=== PATIENT | female | born 1955 | race Caucasian/White ===

== ENCOUNTER 2020-04-03 13:07 | Outpatient (REF) | payer OTHER, SELFPAY | END 2020-04-03 13:08 | disposition home or self-care (01) | LOC: HO.HAP 13:07 | DX: Z46.1 Encounter for fitting and adjustment of hearing aid (principal) | CPT/HCPCS: 92700 ==

== ENCOUNTER 2020-04-07 08:31 | Outpatient (REF) | payer OTHER, SELFPAY ==
--- NOTE | 2020-04-07 10:26 | MHC.AU.P13 ---
Hearing Instrument Follow-Up- Binaural Date of Visit: 04/07/20 Right Ear: [employer]: Oticon Model: OPN S 2 mini RITE Serial Number: [id number] canal earmold #[id number] Warranty: Hearing Aid 04/02/2023 Canal earmold 06/17/2020 Battery Size: 312 Color: Chroma Beige Left Ear: [employer]: Oticon Model: OPN S 2 mini RITE T Serial Number: [id number] canal earmold #[id number] Warranty: Hearing Aid 04/02/2023 Integrated Canal earmold 04/02/2023 Battery Size: 312 Color: Chroma Beige Follow-Up Summary: Patient has been having problems with the fit of the left earmold. Took new impressions today and sending the earmolds back to be remade. Switching to size 2 wires too. Will call to schedule a 60 min hearing aid fitting upon receipt. Recommendations: Recommendations (Other): Will call to schedule an appointment once remade molds are received. Diagnosis Code(s): Primary Diagnosis: H90.3 Bilateral Sensorineural Hearing Loss Services Performed: Assorted Hearing Aid Service: No Charge Visit Signature: Provider: Paul Lyon, CCC-A
== END 2020-04-07 08:32 | disposition home or self-care (01) ==
LOC: HO.HAP 08:31
DX: Z46.1 Encounter for fitting and adjustment of hearing aid (principal)
CPT/HCPCS: 92700

== ENCOUNTER 2020-04-18 11:34 | Outpatient (REF) | payer OTHER, SELFPAY | END 2020-04-18 11:35 | disposition home or self-care (01) | LOC: HO.HAP 11:34 | PROVIDERS: Visit Provider Internal Medicine | DX: Z13.89 Encounter for screening for other disorder (principal) | CPT/HCPCS: 92700 ==

== ENCOUNTER 2020-05-02 11:34 | Outpatient (REF) | payer OTHER, SELFPAY | END 2020-05-02 11:35 | disposition home or self-care (01) | LOC: HO.HAP 11:34 | PROVIDERS: PCP Internal Medicine; Referring Provider Internal Medicine; Visit Provider Internal Medicine | DX: Z46.1 Encounter for fitting and adjustment of hearing aid (principal) | CPT/HCPCS: V5011; V5020; V5160; V5261; V5264; V5266 ==

== ENCOUNTER 2020-06-29 11:26 | Outpatient (REF) | payer OTHER, SELFPAY | END 2020-06-29 11:27 | disposition home or self-care (01) | LOC: HO.HAP 11:26 | PROVIDERS: Visit Provider Internal Medicine | DX: Z13.89 Encounter for screening for other disorder (principal) ==

== ENCOUNTER 2021-01-16 11:33 | Outpatient (REF) | payer SELFPAY | END 2021-01-16 11:34 | disposition home or self-care (01) | LOC: HO.HAP 11:33 | PROVIDERS: Visit Provider Internal Medicine | DX: Z13.89 Encounter for screening for other disorder (principal) ==

== ENCOUNTER 2022-11-14 11:31 | Outpatient (REF) | payer MEDICARE, SELFPAY | END 2022-11-14 11:32 | disposition home or self-care (01) | LOC: HO.SH 11:31 | PROVIDERS: Visit Provider Internal Medicine | DX: Z01.118 Encounter for examination of ears and hearing with other abnormal findings (principal); H90.3 Sensorineural hearing loss, bilateral | CPT/HCPCS: 92557; 92567 ==

== ENCOUNTER 2022-12-12 11:05 | Outpatient (REF) | payer SELFPAY | END 2022-12-12 11:06 | disposition home or self-care (01) | LOC: HO.HAP 11:05 | PROVIDERS: Visit Provider Internal Medicine | DX: Z13.89 Encounter for screening for other disorder (principal) ==

== ENCOUNTER 2023-02-18 12:47 | Outpatient (REF) | payer SELFPAY ==
--- NOTE | 2023-02-19 10:03 | MHC.AU.HA3 ---
Hearing Instrument Follow-Up- Binaural Date of Visit: 02/18/23 Right Ear: Make, Model, Color, Serial Number: Oticon OPN S2 miniRITE-T SN: [id number] Color: Chroma Beige Assistant To The Vice President Repair Warranty: Hearing Aid 04/02/2023; Earmold 06/17/2020 Assistant To The Vice President Loss and Damage Warranty: 04/02/2023 [facility] Service Plan: 04/03/2023 Battery Size: 312 Garment Tag Stringer/Slim Tube: 2/85 Earmold/Dome/CShell/SlimTip:6 mm single cheung dome with retention tail Type of Wax Guard: miniFit Dispensed By: [facility] Date of Fittin04/03/2020 Left Ear: Make, Model, Color, Serial Number: Oticon OPN S2 miniRITE-T SN: [id number] Color: Chroma Beige Assistant To The Vice President Repair Warranty: Hearing Aid 04/02/2023; Earmold 04/02/2023 Assistant To The Vice President Loss and Damage Warranty: 04/02/2023 [facility] Service Plan: 04/02/2023 Battery Size: 312 Garment Tag Stringer/Slim Tube: Size 2 105 gain Earmold/Dome/CShell/SlimTip: Oticon canal ear mold Type of Wax Guard: mini RITE Pro Wax Dispensed By: [facility] Date of Fittin04/03/2020 Follow-Up Summary: Matt reported she is still having issues with the right hearing aid. Left hearing aid/ear mold - no issues. She has a history of retention and comfort issues with the right acoustic coupling. She initially started with a slim tip ear mold that was consistently uncomfortable despite a remake and she never acclimated to the physical fit. She has tried both 6mm and 8mm cheung domes with concerns regarding retention. Previously noted 6mm domes felt too small and 8mm domes too difficult to insert with some discomfort. She arrived today with a 6mm cheung dome on her right hearing aid; however, it was not fully inserted. Matt reported that the dome continuously works its way out of her ear throughout the day. Attempted to use ear mold again; however, Matt reported she does not like the feeling of the mold in her right ear. Decided to stay with 6mm dome and add retention tail. Practiced insertion multiple times in office. Matt able to successfully insert the right hearing aid with the retention tail with practice. Recommendations: Hearing instrument follow-up or maintenance as needed. Please contact our clinic with any questions or concerns. Patient will call if problems persist. Diagnosis Code(s): Primary Diagnosis: H90.A32 Mixed HL, Unilateral, Left Ear, W/Restricted Contralateral Secondary Diagnosis: H90.A21 SNHL, Unilateral Right Ear, W/Restricted Contralateral Hearing Signature: Provider: Mino Cobian, [facility]
== END 2023-02-18 12:48 | disposition home or self-care (01) ==
LOC: HO.HAP 12:47
PROVIDERS: Visit Provider Internal Medicine
DX: Z13.89 Encounter for screening for other disorder (principal)

== ENCOUNTER 2023-08-14 11:18 | Outpatient (REF) | payer SELFPAY | END 2023-08-14 11:19 | disposition home or self-care (01) | LOC: HO.HAP 11:18 | PROVIDERS: Visit Provider Internal Medicine | DX: Z13.89 Encounter for screening for other disorder (principal) ==

== ENCOUNTER 2023-10-09 11:27 | Outpatient (REF) | payer SELFPAY | END 2023-10-09 11:28 | disposition home or self-care (01) | LOC: HO.HAP 11:27 | PROVIDERS: Visit Provider Internal Medicine | DX: Z13.89 Encounter for screening for other disorder (principal) ==

== ENCOUNTER 2023-10-16 13:57 | Outpatient (REF) | payer SELFPAY | END 2023-10-16 13:58 | disposition home or self-care (01) | LOC: HO.HAP 13:57 | PROVIDERS: Visit Provider Internal Medicine | DX: Z13.89 Encounter for screening for other disorder (principal) ==

== ENCOUNTER 2024-01-02 11:09 | Outpatient (REF) | payer SELFPAY | END 2024-01-02 11:10 | disposition home or self-care (01) | LOC: HO.HAP 11:09 | PROVIDERS: Visit Provider Internal Medicine | DX: Z13.89 Encounter for screening for other disorder (principal) ==

== ENCOUNTER 2024-01-22 11:23 | Outpatient (REF) | payer SELFPAY ==
--- NOTE | 2024-01-22 14:11 | MHC.AU.HA3 ---
Hearing Instrument Follow-Up- Binaural Date of Visit: 01/22/24 Right Ear: Make, Model, Color, Serial Number: Oticon OPN S2 miniRITE-T SN: [id number] Color: Chroma Beige Banquet Houseperson Repair Warranty: 04/02/2023 Banquet Houseperson Loss and Damage Warranty: 04/02/2023 [facility] Service Plan: 04/03/2023 Battery Size: 312 Orchestra Conductor/Slim Tube: 2/85 Earmold/Dome/CShell/SlimTip:Oticon half skeleton micromold Type of Wax Guard: ProWax Dispensed By: [facility] [place] Date of Fittin04/03/2020 Left Ear: Make, Model, Color, Serial Number: Oticon OPN S2 miniRITE-T SN: [id number] Color: Chroma Beige Banquet Houseperson Repair Warranty: 04/02/2023 Banquet Houseperson Loss and Damage Warranty: 04/02/2023 [facility] [place] Service Plan: 04/02/2023 Battery Size: 312 Orchestra Conductor/Slim Tube: Size 2 105 gain Earmold/Dome/CShell/SlimTip: Oticon canal ear mold Type of Wax Guard: ProWax Dispensed By: [facility] [place] Date of Fittin04/03/2020 Follow-Up Summary: Fit new right ear mold, acrylic half skeleton, to help with retention. Comfortable and no feedback. Matt was able to insert the ear mold easily multiple times. Also answered questions about and explained bluetooth connection. Matt started to download the Oticon Entry Level Project Engineer richi in office; however, it was taking too long. She will look through richi at home and call with questions and/or if concerns with fit of earmold arise. Recommendations: Hearing instrument follow-up or maintenance as needed. Please contact our clinic with any questions or concerns. Diagnosis Code(s): Primary Diagnosis: H90.A32 Mixed HL, Unilateral, Left Ear, W/Restricted Contralateral Secondary Diagnosis: H90.A21 SNHL, Unilateral Right Ear, W/Restricted Contralateral Hearing Signature: Provider: Mino Cobian, [facility]
== END 2024-01-22 11:24 | disposition home or self-care (01) ==
LOC: HO.HAP 11:23
PROVIDERS: Visit Provider Internal Medicine
DX: Z46.1 Encounter for fitting and adjustment of hearing aid (principal); H90.A32 Mixed conductive and sensorineural hearing loss, unilateral, left ear with restricted hearing on the contralateral side; H90.A21 Sensorineural hearing loss, unilateral, right ear, with restricted hearing on the contralateral side
CPT/HCPCS: V5264

== ENCOUNTER 2024-08-25 10:40 | Outpatient (REF) | payer MEDICARE, SELFPAY ==
--- OUTSIDE RECORDS SUMMARY | 2024-08-25 13:16 | XMS_ITS | Clinical Summary ---
Author Organization [facility] Address [address] [place] [address] Phone Care Team Providers Care Coffee Brewer Name Role Phone Aida Brock MD Primary Care Provider [phone] Allergies Active Allergy Reactions Criticality Noted Date Comments Aspirin Hives 05/07/2024 Nsaids (Non-Steroidal Anti-I nflammatory Drug) 05/07/2024 Medications zoledronic acid (RECLAST) 5 mg/100 mL piggybackIndicat ions:Osteoporosi s, unspecified osteoporosis type, unspecified pathological fracture presence Infuse 100 mL (5 mg total) into a venous catheter 1 (one) time for 1 dose. 100 mL 05/04/20 24 Active methotrexate, PF, (RediTrex, PF,) 20 mg/0.8 mL syringe Inject 20 mg under the skin. Active cholecalciferol (VITAMIN D-3) 50 mcg (2,000 unit) tablet Take 1 tablet (2,000 Units total) by mouth. Active folic acid (FOLVITE) 1 mg tablet Take 1 tablet (1,000 mcg total) by mouth 1 (one) time each day. Active cycloSPORINE (RESTASIS) 0.05 % ophthalmic emulsion Administer 1 drop into affected eye(s) every 12 hours. 03/20/20 24 Active valACYclovir (VALTREX) 500 mg tablet TAKE 1 TABLET BY MOUTH EVERY DAY 90 tablet 08/05/19 25 Active valACYclovir (VALTREX) 500 mg tablet TAKE 1 TABLET BY MOUTH EVERY DAY 30 tablet 07/06/19 25 025 Discontinued Active Problems Problem Noted Date Diagnosed Date Aspirin-exacerbated respiratory disease (AERD) 0 08/09/2024 Osteoporosis 05/07/2024 Uveitis 03/04/2023 Overview (08/09/2024): Dr Hoover, [facility] (mtx inj) Macular edema, cystoid, right 08/30/2020 Overview (08/09/2024): 09/17 Cough 08/01/2020 Mild intermittent asthma without complication Retinal detachment 01/06/2020 Overview (08/09/2024): Summer 2021: Left. Pending possible surgical repair 2019: Right: Tractional retinal detachment without clear break; cystoid macular edema right eye 09/17. Consult note 12/29/2019, Dr. Parry. Posterior vitreous detachment of right eye, slight vitreous hemorrhage of right eye. No evidence of retinal tears or detachment. She eventually had a surgical procedure with no improvement in vision. May,: Left: Questionable uveitis, treated with steroids for a while. Surgery somewhat helpful. Now legally blind. Cervical spondylosis 06/03/2019 Dry eye 10/01/2016 Anxiety 12/23/2015 Allergic rhinitis 12/22/2015 Eczema 12/22/2015 Hearing loss of both ears 12/22/2015 Herpes simplex 12/22/2015 Overview (08/09/2024): Left buttock Vitamin D deficiency 12/22/2015 Osteoporosis 12/04/2015 Overview (08/09/2024): 10/15 T score spine -2.7 hip -2.7 FRAX score Nasal polyp 11/03/2006 Encounters Date Type Department Care Team Description 07/23/2024 Telephone Internal Medicine - [facility] [address] [place] [phone] Aida Brock MD fax from Last 3 Months Immunizations Name Administration Dates Next Due Pneumococcal conjugate 20 va lent (Prevnar 20, PCV 20) 2mo and older 03/04/2023 Tdap Tetanus diptheria acell ular pertussis (Boostrix; Adacel) 7yo and older 05/04/2020,06/09/2012,11/02/2008 Surgical History Surgery Date Site/Laterality Comments CATARACT EXTRACTION 2010 Bilateral PROCEDURE: HISTORICAL CATARACT REMOVAL OTHER SURGICAL HISTORY 1978 PROCEDURE: HISTORICAL UNSPECIFIED SURGERY; COMMENT: Bilateral ethmoidectomy, OTHER SURGICAL HISTORY 1977 PROCEDURE: HISTORICAL UNSPECIFIED SURGERY; COMMENT: Open reduction of right thumb fracture OTHER SURGICAL HISTORY 06/09/15 PROCEDURE: MAMMOGRAM COLONOSCOPY 11/16/12 PROCEDURE: HISTORICAL COLONOSCOPY; COMMENT: Normal COLONOSCOPY 10/05/1999 PROCEDURE: HISTORICAL COLONOSCOPY; COMMENT: 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 Medical History Medical History Date Comments Other polyp of sinus 11/03/2006 DX:Other po lyp of sinus Osteoporosis 12/04/2015 DX:Osteoporosis Hearing loss of both ears 12/22/2015 DX:Hea ring loss of both ears Allergic rhinitis 12/22/2015 DX:Allergic rh initis Eczema 12/22/2015 DX:Eczema Vitamin D deficiency 12/22/2015 DX:Vitamin D deficiency History of superficial phlebitis 12/23/2015 DX:History of superficial phlebitis Anxiety 12/23/2015 DX:Anxiety Cervical spondylosis 06/03/2019 DX:Cervical spondylosis Vitreous detachment of right eye 01/06/2020 DX:Vitreous detachment of right eye; COMMENT: Consult note 12/29/2019, Dr. Parry. Posterior vitreous detachment of right eye, slight vitreous hemorrhage of right eye. No evidence of retinal tears or detachment. Conservative care with follow-up as needed. Macular edema, cystoid, right 08/30/2020 DX :Macular edema, cystoid, right; COMMENT: 09/17 Aspirin-exacerbated respirat ory disease (AERD) 01/17/2022 DX:Aspirin-exacerbated respi ratory disease (AERD); COMMENT: Per ENT Uveitis 03/04/2023 DX:Uveitis; COMM ENT: Dr Hoover, [facility] center (mtx inj) Family History Medical History Relation Name Comments Other: Heart disease Brother s/p car diac bypass Prostate cancer Father colon cancer , htn Dementia Mother thyroid, osteop orosis Other: Tourettes Son Relation Name Status Comments Brother Father (Age 76) Mother Alive 90 Sister Alive Son Social History Tobacco Use Types Packs/Day Years Used Date Smoking Tobacco: Never Smokeless Tobacco: Never Alcohol Use Standard Drinks/Week Comments No 0 (1 standard drink = 0.6 oz pur e alcohol) Comments Unknown Sex and Gender Information Value Date Recorded Sex Assigned at Not on file Legal Sex Female 5:58 AM EST Gender Identity Not on file Sexual Orientation Not on file Obstetrics History Last Filed Vital Signs Vital Sign Reading Time Taken Comments Blood Pressure 157/62 05/07/2024 1:11 PM EST Pulse 90 05/07/2024 1:11 PM EST Temperature 37.2 ??C (99 ??F) 05/07/2024 1:11 PM EST Respiratory Rate - - Oxygen Saturation 100% 05/07/2024 1:11 PM EST Inhaled Oxygen Concentration - - Weight 21.4 kg (47 lb 3.2 oz) 05/07/2024 1:11 PM EST Height 152.4 cm (5') 03/25/2024 11:49 AM EDT Body Mass Index 9.22 03/25/2024 11:49 AM EDT Plan of Treatment Upcoming Encounters Date Type Department Care Team (Late st Contact Info) Description 02/04/2025 11:00 AM EDT Office Visit Endocrinology - [place] [address] [place] [address] Rashid Mills MD [address] [place] [address] Health Maintenance Due Date Last Done Comments Zoster Vaccines (1 of 2) 2005 RSV Immunization Patients 60+ Years Old (1 - Risk 60-74 years 1-dose series) 2015 Depression Screening 06/08/2022 Hepatitis C Screening 06/08/2022 Medicare Annual Wellness Visit 06/08/2022 Social Influencers of Health Screening 06/08/2022 COVID-19 Vaccine ( season) 2024 05/20/2021, 10/21/2020, 09/23/2020 Influenza Vaccine (#1) 2024 Colorectal Cancer Screening: Stool Based Tests (FOBT/FIT) 04/02/2024 04/02/2023 Falls Risk Assessment 05/07/2025 05/07/2024 Breast Cancer Screening 12/29/2025 12/30/19 24, 12/18/2022, 11/15/2021, Additional history exists Cholesterol Screening (Lipid Panel) 03/30/2029 03/30/2024, 03/30/2024 DTaP,Tdap,and Td Vaccines (4 - Td or Tdap) 05/04/2030 05/04/2020, 06/09/2012, 11/02/2008 Osteoporosis Screening (Bone Density Screening) 09/10/2033 09/11/2023, 01/25/2021 Pneumococcal Vaccine: 50+ Years Completed 03/04/2023 HIB Vaccines Aged Out No longer eligi ble based on patient's age to complete this topic HPV Vaccines Aged Out No longer eligi ble based on patient's age to complete this topic Hepatitis A Vaccines Aged Out No long er eligible based on patient's age to complete this topic Hepatitis B Vaccines Aged Out No long er eligible based on patient's age to complete this topic IPV Vaccines Aged Out No longer eligi ble based on patient's age to complete this topic MMR Vaccines Aged Out No longer eligi ble based on patient's age to complete this topic Meningococcal ACWY Vaccine Aged Out N o longer eligible based on patient's age to complete this topic Meningococcal B Vacine Aged Out No lo nger eligible based on patient's age to complete this topic RSV Immunization Patients Under 20 months Aged Out No longer eligible based on patient's age to complete this topic Varicella Vaccines Aged Out No longer eligible based on patient's age to complete this topic Procedures Procedure Name Priority Date/Time Associated Diagnosis Comments LIPID PANEL Routine 03/30/2024 ASMITA SCREENING DIGITAL Routine 12/30/2023 3:24 PM EDT Encounter for screening mammogram for malignant neoplasm of breast DXA BONE DENSITY STUDY 1+ SITS AXIAL SKEL Routine 09/11/2023 1:27 PM EDT Age-related osteoporosis without current pathological fracture HM STOOL BASED TEST Routine 04/02/2023 from Last 3 Months or Most Recently Relevant to Health Maintenance Results * Lipid panel (03/30/2024) LDL/HDL Ratio 3 0 - 4 Triglycerides 79 0 - 150 mg/dL Cholesterol 189 0 - 200 mg/dL HDL 77 >=40 mg/dL LDL Cholesterol 97 0 - 100 mg/dL Blood Venous blood specimen / Unknown us Historical Provider LAB BLOOD ORDERABLES Katelyn bonilla Result * ASMITA SCREENING DIGITAL (12/30/2023 3:24 PM EDT) Anatomical Region Laterality Modality Mammography 12/30/2023 11:0 2 AM EDT Narrative 12/30/2023 3:24 PM EDT [facility] Diagnostic Imaging Department [address] [place] [address] Patient: ??KOREY COE ?/Age/Sex: 1955 - 68 - F Unit#: ??[id number] ? Location/Status: ??SPDIMAM/REG CLI ? Mnemonic/Ordering Site: ??DIGSC/SPMAM Ordering Physician: ??AIDA BROCK MD [facility] Screening Digital - 12/30/23 - [id number] Report Status:Signed EXAM: [facility] Screening Digital EXAM DATE AND TIME: 12/30/2023 11:29 AM HISTORY: ??Screening. COMPARISON: ??12/17/22, 11/15/21, 08/10/20, 08/06/19 TECHNIQUE: Bilateral digital breast tomosynthesis was performed in the CC and MLO projections. Computer aided detection with [employer] 3D 3.1 was employed. TISSUE DENSITY: c. The breasts are heterogeneously dense, which may obscure small masses. FINDINGS: No suspicious masses, grouped microcalcifications, or areas of architectural distortion are seen. There are scattered microcalcifications. Numerous skin calcifications are also seen. The vascularity is unremarkable. IMPRESSION: Stable mammographic appearance of the breasts. ??No evidence of malignancy is seen. A negative mammogram in the presence of a clinically suspicious palpable abnormality does not preclude the possibility of malignancy or alter the indications for biopsy. BI-RADS: ??Category 2: Benign RECOMMENDATION(S): 1: Routine screening mammogram BILATERAL in 1 year. Dictating Physician: ??KRYSTAL ZHANG MD Electronically Signed by: ??KRYSTAL ZHANG MD Dic Date/Time: ??12/30/23 1524 Sign date/Time: ??12/30/23 1524 Procedure Note Krystal Zhang MD - 04/14/2024 [facility] Diagnostic Imaging Department [address] [place] [address] Patient: KOREY COE./Age/Sex: 1955 - 68 - F Unit#: [id number] [facility]/Ordering Site: [facility] Ordering Physician: AIDA BROCK MD [facility] Screening Digital - 12/30/23 - 1128 Report Status:Signed EXAM: [facility] Screening Digital EXAM DATE AND TIME: 12/30/2023 11:29 AM HISTORY: Screening. COMPARISON: 12/17/22, 11/15/21, 08/10/20, 08/06/19 TECHNIQUE: Bilateral digital breast tomosynthesis was performed in the CCand MLO projections. Computer aided detection with [employer] 3D 3.1was employed. TISSUE DENSITY: c. The breasts are heterogeneously dense, which mayobscure small masses. FINDINGS: No suspicious masses, grouped microcalcifications, or areas ofarchitectural distortion are seen. There are scattered microcalcifications. Numerousskin calcifications are also seen. The vascularity is unremarkable. IMPRESSION: Stable mammographic appearance of the breasts. No evidence of malignancyis seen. A negative mammogram in the presence of a clinically suspicious palpable abnormality does not preclude the possibility of malignancy or alter the indications for biopsy. BI-RADS: Category 2: Benign RECOMMENDATION(S): 1: Routine screening mammogram BILATERAL in 1 year. Dictating Physician: KRYSTAL ZHANG MD Electronically Signed by: KRYSTAL ZHANG MD Dic Date/Time: 12/30/23 1524 Sign date/Time: 12/30/23 1524 Aida Brock MD IMG BI PROCEDURES Final R esult * DXA BONE DENSITY STUDY 1+ SITS AXIAL SKEL (09/11/2023 1:27 PM EDT) Anatomical Region Laterality Modality Bone Densitometr y 03/04/2023 11:5 8 AM EDT Narrative 09/11/2023 6:50 PM EDT Clinical history: osteoporosis Scans of the lumbar spine and hips were performed on a [employer] fan beam bone densitometer. ? Bone mineral density measurements and associated T and Z scores respectively are as follows: Lumbar Spine: L1-L4 BMD: 0.645 g/cm2 ? T-Score: -3.7 ? Z-Score: -1.7 Left Proximal Femur: Neck BMD: 0.486 g/cm2 ? T-Score: -3.3 ?? Z-Score: -1.6 Total BMD: 0.521 g/cm2 ? T-Score: -2.5 ?Z-Score: -2.1 Compared with standards for the young adult, lowest measured bone density places the patient in the W.H.O. osteoporotic range. IMPRESSION: IMPRESSION: Osteoporosis. The NOF guidelines recommend that FDA approved medical therapies be considered in postmenopausal women and men age >50 years with a: i. Hip or vertebral (clinical or morphometric) fracture ii. T score of < -2.5 at the spine or hip iii. 10 year fracture probability by FRAX of >3% for hip fracture, or >20% for major osteoporotic fracture PLEASE NOTE: ?? W.H.O. classification is based on lowest measured density at the spine, femoral neck, or total hip.This classification has prognostic significance when applied to post menopausal women and older men. 1) ??The World Health Organization defines low BMD as follows: ?T-score ? Normal ? at or > -1 Osteopenia ? < -1 and ??> - 2.5 Osteoporosis ? at or < -2.5 without fractures Established osteoporosis ? < -2.5 with fractures Procedure Note Naseem Sun MD - 02/16/2024 Clinical history: osteoporosis Scans of the lumbar spine and hips were performed on a [employer]/Vigilant Technologyfan beam bone densitometer. Bone mineral density measurements and associated T and Z scoresrespectively are as follows: Lumbar Spine: L1-L4 BMD: 0.645 g/cm2 T-Score: -3.7 Z-Score: -1.7 Left Proximal Femur: Neck BMD: 0.486 g/cm2 T-Score: -3.3 Z-Score: -1.6 Total BMD: 0.521 g/cm2 T-Score: -2.5 Z-Score: -2.1 Compared with standards for the young adult, lowest measured bone densityplaces the patient in the W.H.O. osteoporotic range. IMPRESSION: IMPRESSION: Osteoporosis. The NOF guidelines recommend that FDA approved medical therapies beconsidered in postmenopausal women and men age >50 years with a: i. Hip or vertebral (clinical or morphometric) fracture ii. T score of < -2.5 at the spine or hip iii. 10 year fracture probability by FRAX of >3% for hip fracture, or >20%for major osteoporotic fracture PLEASE NOTE: W.H.O. classification is based on lowest measured density at the spine,femoral neck, or total hip.This classification has prognostic significance when applied to postmenopausal women and older men. 1) The World Health Organization defines low BMD as follows: T-score Normal at or > -1 Osteopenia < -1 and > -2.5 Osteoporosis at or < -2.5 withoutfractures Established osteoporosis < -2.5 with fractures Heike Doyle ATHLETIC AGENT IMG DXA PROCEDURES Final Resul t * Stool Based Tests (FOBT/FIT) (04/02/2023) [facility] Colorectal Cancer Screening: Stool Based Tests Negative Abstracted Historical Provider HEALTH MAINTENANCE Final Result from Last 3 Months or Most Recently Relevant to Health Maintenance Insurance [employer] Care Teams Coffee Brewer Relationship Specialty Start Date End Date Aida Brock MD [address] [place] [address] [phone] PCP - General Internal Medicine 02/04/20
--- OUTSIDE RECORDS SUMMARY | 2024-08-25 13:16 | XMS_ITS | Clinical Summary ---
Author Organization [facility] Address [address] [place] [address] Care Team Providers Care Senior Economist Name Role Phone Unavailable Primary Care Provider Unavailabl e Source Comments PLEASE NOTE, if this patient is a minor, it may be UNLAWFUL to discuss sensitive information that is contained in these records (such as FAMILY PLANNING, MENTAL HEALTH or SUBSTANCE ABUSE) with the minor patient's parent or other person without the patient's specific authorization.[facility] Social History Tobacco Use Types Packs/Day Years Used Date Smoking Tobacco: Never Assessed Social Connections Answer Date Recorded Social Connections and Isolation 0 06/21/2020 Financial Resource Strain Answer Date R ecorded Financial Resource Strain 0 2019 Stress Answer Date Recorded Stress 0 06/21/2020 Physical Activity Answer Date Recorded Physical Activity 0 06/21/2020 Food Insecurity Answer Date Recorded Food 0 06/21/2020 Transportation Needs Answer Date Record ed Transportation 0 06/21/2020 Housing Stability Answer Date Recorded Housing 0 06/21/2020 Safety and Environment Answer Date Roberto rded Safety 0 06/21/2020 Utilities Answer Date Recorded Utilities 0 06/21/2020 Employment Answer Date Recorded Employment 0 06/21/2020 Comments Unknown Sex and Gender Information Value Date Recorded Sex Assigned at Not on file Legal Sex Female 10:42 AM PST Gender Identity Not on file Sexual Orientation Not on file Plan of Treatment Not on file Insurance [employer]
== END 2024-08-25 10:41 | disposition home or self-care (01) ==
LOC: CF 10:40
DX: Z13.89 Encounter for screening for other disorder (principal)

== ENCOUNTER 2024-09-09 10:29 | Outpatient (AMB) | payer MEDICARE, SELFPAY ==
--- NOTE | 2024-09-09 10:32 | MHC.OFFVIS ---
Vital Signs 09/09/24 10:35 Height 5 ft 0.5 in Weight 106 lb 14.787 oz BMI 20.5 BP 118/60 Blood Pressure Location Rt brachial Position Sitting Pulse 89 Pulse Source Pulse Oximeter Pulse Oximetry (%) 100 Oxygen Delivery Method Room Air Intake Visit Reasons: COPD Allergies aspirin Allergy (Verified 09/09/24 10:40) KAYLEIGH HPI Comments Details: The patient is here for pulmonary evaluation. The patient is a 69 year woman with a history of asthma, nasal polyposis and uveitis presenting with worsening for ongoing symptoms. Apparently the patient was initially diagnosed with uveitis and she was seen by specialists. 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 She was evaluated at [facility]. Ultimately placed on methotrexate for the suspicion of an autoimmune inflammatory etiology. Although sarcoidosis was never clearly identified. She does continue on her subcutaneous methotrexate on a weekly basis. Seems to be tolerating the medicine well. In the meantime she has had couple CT scans which I personally reviewed. She did bring the images from [place]. She does have some evidence of chronic bronchitis and interstitial changes primarily at the bases in the periphery but not significant to call interstitial lung disease. No evidence of any ground-glass opacities that I can appreciate on this CT scan. Although she has had ground-glass opacities described in the past. She also had a chest x-ray more recently in August demonstrating some interstitial changes but compared to the CT scans and therefore is hard to know there is any progression of disease. The patient has had PFTs back about 4 5 years ago I do not have those results. She does use her rescue inhaler as needed. She was using Flonase for her nose but she started having some epistaxis so she stopped it. Therefore, will have her undergo pulmonary function studies and blood work and have her come back. Will go ahead and add some regimen therapies to her nasal congestion and postnasal drip. Have her come back and then we can talk about additional testing such as a CT scan depending on the PFTs. [facility] Medical History (Updated 09/09/24 @ 21:23 by Jonh Panda MD) Chronic cough Pulmonary fibrosis Chronic rhinitis Asthma Uveitis Sicca syndrome Bronchiectasis Social History (Updated 09/09/24 @ 10:39 by Beata Buchanan CMA) Patient Tobacco Use Status: Never used Tobacco Review of Systems Const Denies fever(s) Eyes Reports loss of vision ENT Reports nasal congestion, Reports nasal discharge and Reports post nasal drip Card Denies chest pain and Denies dyspnea on exertion Resp Denies dyspnea on exertion and Denies wheezing GI Denies abdominal pain Musc Reports no additional complaints Skin/Breast Denies rash Neuro Reports loss of vision Aller/Immun Denies wheezing Physical Exam Vital Signs: Last Vital Signs Pulse 89 09/09/24 10:35 BP 118/60 09/09/24 10:35 Pulse Ox 100 09/09/24 10:35 Oxygen Delivery Method Room Air 09/09/24 10:35 BMI result Body Mass Index 20.5 Const General: comfortable HEENT General nose exam: Abnormal mucous membranes and turbinates present boggy and erythematous and Nasal discharge present Neck Neck: Yes supple Chest Chest palpation & inspection: normal inspection of the chest Resp Effort & Inspection: normal respiratory effort Auscultation: clear to auscultation bilaterally Cardio Heart sounds: S1 normal heart sound present and S2 normal heart sound present GI Palpation (GI): Soft to palpation Skin General skin exam: no rashes or lesions noted Extrem General: Yes no clubbing, cyanosis or edema Results Reviewed Results Reviewed: pesonally reviewed CT chest 2020 with peripheral based interstitial changes, likely fibrosis. Some minimal bronchiectatic changes Assessment & Plan Assessment & Plan (1) Uveitis: Code(s): H20.9 - Unspecified iridocyclitis Category: Medical (2) Asthma: Code(s): J45.909 - Unspecified asthma, uncomplicated Category: Medical Qualifiers: Asthma severity: mild Asthma persistence: intermittent Asthma complication type: uncomplicated Qualified Code(s): J45.20 - Mild intermittent asthma, uncomplicated (3) Chronic rhinitis: Code(s): J31.0 - Chronic rhinitis Category: Medical (4) Pulmonary fibrosis: Code(s): J84.10 - Pulmonary fibrosis, unspecified Category: Medical (5) Chronic cough: Code(s): R05.3 - Chronic cough Category: Medical Plan start astelin nasal spray saline gel holding fluticasone due to epistaxis PFTs Bloodwork CXR with interstitial changes, will likely need a CT chest JOSEE as needed F/U 2-3 months Orders: Orders Immunoglobulin E Today H20.9 - Unspecified iridocyclitis, J47.9 - Bronchiectasis, uncomplicated, M35.00 - Sjogren syndrome, unspecified Angiotensin Converting Enzyme Today H20.9 - Unspecified iridocyclitis, J47.9 - Bronchiectasis, uncomplicated, M35.00 - Sjogren syndrome, unspecified Erythrocyte Sedimentation Rate Today H20.9 - Unspecified iridocyclitis, J47.9 - Bronchiectasis, uncomplicated, M35.00 - Sjogren syndrome, unspecified PFT pulmonary function test Today R05.3 - Chronic cough Complete Blood Count Auto Diff Today H20.9 - Unspecified iridocyclitis, J47.9 - Bronchiectasis, uncomplicated, M35.00 - Sjogren syndrome, unspecified Basic Metabolic Panel Today H20.9 - Unspecified iridocyclitis, J47.9 - Bronchiectasis, uncomplicated, M35.00 - Sjogren syndrome, unspecified Immunoglobulins,IgG IgA IgM Today H20.9 - Unspecified iridocyclitis, J47.9 - Bronchiectasis, uncomplicated, M35.00 - Sjogren syndrome, unspecified ANCA Vasculitides Today H20.9 - Unspecified iridocyclitis, J47.9 - Bronchiectasis, uncomplicated, M35.00 - Sjogren syndrome, unspecified Sjogren's Antibodies Today H20.9 - Unspecified iridocyclitis, J47.9 - Bronchiectasis, uncomplicated, M35.00 - Sjogren syndrome, unspecified Scleroderma 70 Antibody Today H20.9 - Unspecified iridocyclitis, J47.9 - Bronchiectasis, uncomplicated, M35.00 - Sjogren syndrome, unspecified Hypersensitive Pneumonitis Prf Today H20.9 - Unspecified iridocyclitis, J47.9 - Bronchiectasis, uncomplicated, M35.00 - Sjogren syndrome, unspecified, R91.8 - Other nonspecific abnormal finding of lung field Medications: New azelastine administer into each nostril 2 sprays intranasal BID 30 days 30 mL 6RF Coding Level of Care Code New Pt Level 4 (97167) Diagnoses Uveitis H20.9 Mild intermittent asthma without complication J45.20 Asthma severity: mild Asthma persistence: intermittent Asthma complication type: uncomplicated Chronic rhinitis J31.0 Pulmonary fibrosis J84.10 Chronic cough R05.3 Time Spent (min) 60
[2024-09-09 10:35] VITALS: BP 118/60; PULSE 89; O2SAT 100; BMI 20.5
--- OUTSIDE RECORDS SUMMARY | 2024-09-09 13:09 | XMS_ITS | Encounter Summary ---
Author Organization [facility] Address [address] [place] [address] Care Team Providers Care Occupancy Specialist Name Role Phone Zane Brock MD Primary Care Provider [phone] [phone] Encounter Details Date Type Department Care Team (Latest Contact Info) Description 09/02/2024 9:34 AM EST - 09/02/2024 11:59 PM [facility] Hospital Encounter Xray - [facility] [address] [facility] [place] [phone] Mild intermittent asthma, uncomplicated Discharge Disposition: Home or Self Care Social History Tobacco Use Types Packs/Day Years Used Date Smoking Tobacco: Never Smokeless Tobacco: Never Alcohol Use Standard Drinks/Week Comments No 0 (1 standard drink = 0.6 oz pur e alcohol) Comments Unknown Sex and Gender Information Value Date Recorded Sex Assigned at Not on file Legal Sex Female 5:58 AM EST Gender Identity Not on file Sexual Orientation Not on file documented as of this encounter Medications at Time of Discharge cholecalciferol (VITAMIN D-3) 50 mcg (2,000 unit) tablet Take 1 tablet (2,000 Units total) by mouth. cycloSPORINE (RESTASIS) 0.05 % ophthalmic emulsion Administer 1 drop into affected eye(s) every 12 hours. 03/20/2024 folic acid (FOLVITE) 1 mg tablet Take 1 tablet (1,000 mcg total) by mouth 1 (one) time each day. methotrexate, PF, (RediTrex, PF,) 20 mg/0.8 mL syringe Inject 20 mg under the skin. valACYclovir (VALTREX) 500 mg tablet TAKE 1 TABLET BY MOUTH EVERY DAY 90 tablet 08/05/2024 documented as of this encounter Discharge Disposition Disposition Code Departure Means Destination Home or Self Care documented in this encounter Plan of Treatment Upcoming Encounters Date Type Department Care Team (Late st Contact Info) Description 02/04/2025 11:00 AM EDT Office Visit Endocrinology - [place] [address] [place] [address] Rashid Mills MD [address] [place] [address] documented as of this encounter Procedures Procedure Name Priority Date/Time Associated Diagnosis Comments XR CHEST 2 VIEWS Routine 09/02/2024 9:44 AM EST Mild intermittent asthma, uncomplicated documented in this encounter Results * XR Chest 2 Views (09/02/2024 9:44 AM EST) Anatomical Region Laterality Modality Body Radiographic Mara ging 09/02/2024 9:52 AM EST Impressions 09/02/2024 9:58 AM EST No focal lung consolidation. -------- FINAL REPORT -------- Dictated By: Lilliam Abdalla Dictated Date: 09/02/2024 09:52 ET Assigned Physician: Lilliam Abdalla Reviewed and Electronically Signed By: Lilliam Abdalla Signed Date: 09/02/2024 09:58 ET Workstation ID: [id number] Transcribed By: Self Edit Transcribed Date: 09/02/2024 09:52 ET Narrative 09/02/2024 9:58 AM EST XR CHEST 2 VIEWS Reason: asthma Comparison: Chest radiograph on March 30, 2021. ??The chest CT on April 12, 2021. FINDINGS: Lungs: No focal consolidation. ??Chronic apparent opacity in the lateral aspect of the right lung base, similar to 2020, is likely a combination of the superimposed soft tissue and peripheral scarring noted on the previous chest CT study. Pleura: Trace pleural effusion or scarring obliterates the right costophrenic angle. ??No pneumothorax. Heart/Mediastinum: Cardiomediastinal silhouette is within normal limits. Bones : No acute findings. Procedure Note Lilliam Abdalla MD - 09/02/2024 XR CHEST 2 VIEWS Reason: asthma Comparison: Chest radiograph on March 30, 2021. The chest CT on 2020. FINDINGS: Lungs: No focal consolidation. Chronic apparent opacity in the lateralaspect of the right lung base, similar to 2020, is likely a combination ofthe superimposed soft tissue and peripheral scarring noted on the previouschest CT study. Pleura: Trace pleural effusion or scarring obliterates the rightcostophrenic angle. No pneumothorax. Heart/Mediastinum: Cardiomediastinal silhouette is within normal limits. Bones : No acute findings. IMPRESSION: No focal lung consolidation. -------- FINAL REPORT -------- Dictated By: Lilliam Abdalla Dictated Date: 09/02/2024 09:52 ET Assigned Physician: Lilliam Abdalla Reviewed and Electronically Signed By: Lilliam Abdalla Signed Date: 09/02/2024 09:58 ET Workstation ID: [id number] Transcribed By: Self Edit Transcribed Date: 09/02/2024 09:52 ET Eleanor Francois MD IMG XR PROCEDURES Final Resu lt documented in this encounter Visit Diagnoses Diagnosis Mild intermittent asthma, uncomplicated documented in this encounter Care Teams Occupancy Specialist Relationship Specialty Start Date End Date Zane Brock MD [address] [place] [id number] PCP - General Internal Medicine 02/04/20 documented as of this encounter
--- OUTSIDE RECORDS SUMMARY | 2024-09-09 13:09 | XMS_ITS | Clinical Summary ---
Author Organization [facility] Address [address] [place] [address] Care Team Providers Care Pharmacist'S Aide Name Role Phone Unavailable Primary Care Provider [...]
--- OUTSIDE RECORDS SUMMARY | 2024-09-09 13:09 | XMS_ITS | Clinical Summary ---
Author Organization [facility] Address [address] [place] [address] Phone Care Team Providers Care Repair Department Supervisor Name Role Phone Zane Brock MD Primary Care Provider [phone] [phone] Allergies Active Allergy Reactions Criticality Noted Date Comments Aspirin Hives 05/07/2024 Nsaids (Non-Steroidal Anti-I nflammatory Drug) 05/07/2024 Medications zoledronic acid (RECLAST) 5 mg/100 mL piggybackIndicati ons:Osteoporosis, unspecified osteoporosis type, unspecified pathological fracture presence Infuse 100 mL (5 mg total) into a venous catheter 1 (one) time for 1 dose. 100 mL 4 Active methotrexate, PF, (RediTrex, PF,) 20 mg/0.8 [...] drop into affected eye(s) every 12 hours. 4 Active valACYclovir (VALTREX) 500 mg tablet TAKE 1 TABLET BY MOUTH EVERY DAY 90 tablet 5 Active Active Problems Problem Noted Date Diagnosed Date [...] Encounters Date Type Department Care Team Description 09/02/2024 9:34 AM EST - 09/02/2024 11:59 PM EST Hospital Encounter Xray - [facility] [address] [place] [phone] Mild intermittent asthma, uncomplicated Discharge Disposition: Home or Self Care 07/23/2024 Telephone Internal Medicine - [facility] [address] [place] [phone] Zane Brock MD fax from Last 3 Months [...] 11:00 AM EDT Office Visit Endocrinology - [place] [address] [place] [address] Rashid Mills MD [address] [place] [address] Health Maintenance Due Date Last [...] Assessment 05/07/2025 05/07/2024 Breast Cancer Screening 12/29/2025 12/30/19, 12/18/2022, 11/15/2021, Additional history exists Cholesterol Screening [...] 9:44 AM EST Mild intermittent asthma, uncomplicated LIPID PANEL Routine 03/30/2024 [facility] SCREENING DIGITAL Routine 12/30/2023 3:24 PM EDT Encounter for screening mammogram for malignant neoplasm of breast DXA BONE DENSITY STUDY 1+ SITS AXIAL SKEL Routine 09/11/2023 1:27 PM EDT Age-related osteoporosis without current pathological fracture HM STOOL BASED TEST Routine 04/02/2023 from Last 3 Months or Most Recently Relevant to Health Maintenance Results * XR Chest 2 Views (09/02/2024 9:44 AM EST) Anatomical Region Laterality Modality Body Radiographic Mara ging 09/02/2024 9:52 AM EST Impressions 09/02/2024 9:58 AM EST No focal lung consolidation. -------- FINAL REPORT -------- Dictated By: Lilliam Abdalla Dictated Date: 09/02/2024 09:52 ET Assigned Physician: Lilliam Abdalla Reviewed and Electronically Signed By: Lilliam Abdalla Signed Date: 09/02/2024 09:58 ET Workstation ID: [id number] Transcribed By: Self Edit Transcribed Date: 09/02/2024 [...] Signed Date: 09/02/2024 09:58 ET Workstation ID: [id number] Transcribed By: Self Edit Transcribed Date: 09/02/2024 09:52 ET Eleanor Francois MD IMG XR PROCEDURES Final Resu lt * Lipid panel (03/30/2024) LDL/HDL Ratio 3 0 - 4 Triglycerides 79 0 - 150 mg/dL Cholesterol 189 0 - 200 mg/dL HDL 77 >=40 mg/dL LDL Cholesterol 97 0 - 100 mg/dL Blood Venous blood specimen / Unknown us Historical Provider LAB BLOOD ORDERABLES Katelyn l Result * ASMITA SCREENING DIGITAL (12/30/2023 3:24 PM EDT) Anatomical Region Laterality Modality Mammography 12/30/2023 11:0 2 AM EDT Narrative 12/30/2023 3:24 PM EDT [facility] Diagnostic Imaging Department [address] [place] [id number] Patient: ??MATT COE ?/Age/Sex: 1955 - - Unit#: ??[id number] ? Location/Status: ??SPDIMAM/REG CLI ? Mnemonic/Ordering Site: ??DIGSC/SPMAM Ordering Physician: ??ZANE BROCK MD Asmita Screening Digital - 12/30/23 - 1128 Report Status:Signed EXAM: [facility] Screening Digital EXAM DATE AND TIME: 12/30/2023 11:29 AM HISTORY: ??Screening. COMPARISON: ??12/17/22, 11/15/21, 08/10/20, 08/06/19 TECHNIQUE: Bilateral digital breast tomosynthesis was performed in the CC and MLO projections. Computer aided detection with [employer] 3D 3.1 was employed. TISSUE DENSITY: c. [...] Procedure Note Krystal Zhang MD - 04/14/2024 [facility] Diagnostic Imaging Department [address] [place] [address] Patient: MATT COE.O.B./Age/Sex: 1955 - 68 - F Unit#: [id number] Location/Status: SPDIMAM/REG CLI Mnemonic/Ordering Site: [facility] Ordering Physician: ZANE BROCK MD [facility] Screening Digital - 12/30/23 - 1128 Report Status:Signed EXAM: [facility] Screening Digital EXAM DATE AND TIME: 12/30/2023 11:29 AM HISTORY: Screening. COMPARISON: 12/17/22, 11/15/21, 08/10/20, 08/06/19 TECHNIQUE: Bilateral digital breast tomosynthesis was performed in the CCand MLO projections. Computer aided detection with [employer] 3D 3.1was employed. TISSUE DENSITY: c. The [...] MD Dic Date/Time: 12/30/23 1524 Sign date/Time: 12/30/231523 us Zane Brock MD IMG BI PROCEDURES Final R esult * DXA BONE DENSITY STUDY 1+ SITS AXIAL SKEL (09/11/2023 1:27 PM EDT) Anatomical Region Laterality Modality Bone Densitometr y 03/04/2023 11:5 8 AM EDT Narrative 09/11/2023 6:50 PM EDT Clinical history: osteoporosis Scans of the lumbar spine and hips were performed on a [employer] fan beam bone densitometer. ? Bone mineral [...] spine and hips were performed on a [employer] beam bone densitometer. Bone mineral density measurements [...] withoutfractures Established osteoporosis < -2.5 with fractures us Heike Doyle NP IMG DXA PROCEDURES Final Resul t * Hm Stool Based Tests (FOBT/FIT) (04/02/2023) Pathologist [facility] Colorectal Cancer Screening: Stool Based Tests Negative Abstracted us Historical Provider HEALTH MAINTENANCE Final Result from Last 3 Months or Most Recently Relevant to Health Maintenance Insurance [employer] [place] [id number] Care Teams Repair Department Supervisor Relationship Specialty Start Date End Date Zane Brock MD [address] [place] [address] [place] [address] PCP - General Internal Medicine 02/04/20
== END 2024-09-09 11:17 | disposition home or self-care (01) ==
LOC: HO.HPS 10:30
PROVIDERS: PCP Internal Medicine; Visit Provider Hospitalist
DX: H20.9 Unspecified iridocyclitis (principal); J45.20 Mild intermittent asthma, uncomplicated; J31.0 Chronic rhinitis; J84.10 Pulmonary fibrosis, unspecified; R05.3 Chronic cough
CPT/HCPCS: 99204

== ENCOUNTER 2024-09-09 10:29 | Outpatient (REF) | payer MEDICARE, SELFPAY ==
[2024-09-09 11:54] LABS: MANUAL DIFF FLAG NO
[2024-09-09 12:51] LABS: Basophils Absolute Auto 0.1 X10*3/uL (0.0-0.2); Basophils Percent Auto 0.9 % (0-2); Eosinophils Absolute Auto 0.1 X10*3/uL (0.0-0.4); Hematocrit 45.9 % (37.0-47.0); Hemoglobin 15.1 g/dl (12.0-16.0); Imm Gran Abs Auto 0.01 X10*3/uL (0.00-0.03); Imm Gran Pct Auto 0.2 % (0.0-0.4); Lymphocytes Absolute Auto 1.3 X10*3/uL (1.2-4.9); Lymphocytes Percent Auto 21.3 % (20-40); Mean Corpuscular HGB Conc 32.9 g/dl (31.0-35.0); Mean Corpuscular Hemoglobin 31.7 pg (27.0-33.0); Mean Corpuscular Volume 96.2 fL (80.0-98.0); Mean Platelet Volume 10.7 fL (9.4-12.3); Monocytes Absolute Auto 0.5 X10*3/uL (0.1-1.2); Monocytes Percent Auto 8.2 % (2-11); Neutrophils Percent Auto 67.4 % (45-73); Platelet Count 252 X10*3/uL (160-400); Red Blood Count 4.77 X10*6/uL (4.20-5.50); Red Cell Distribution Width 13.6 % (11.0-16.0); White Blood Count 5.9 X10*3/uL (4.8-10.8)
[2024-09-09 13:16] LABS: Anion Gap 11 (12-20); Blood Urea Nitrogen 13 mg/dL (9-16); Calcium 9.5 mg/dL (8.4-10.2); Carbon Dioxide 27 mmol/L (22-29); Chloride 108 mmol/L (96-108); Estimated Glomerular Filt Rate > 60; Glucose Random 84 mg/dL (60-115); Potassium 3.8 mmol/L (3.3-5.1); Sodium 142 mmol/L (135-145)
--- OUTSIDE RECORDS SUMMARY | 2024-09-09 14:45 | XMS_ITS | Clinical Summary ---
Author Organization [facility] Address [address] [place] [address] Phone Care Team Providers Care Corporate Travel Consultant Name Role Phone Zane Brock MD Primary Care Provider [phone] [phone] Allergies Active Allergy Reactions Criticality Noted Date [...] - [facility] [address] [place] [phone] Mild intermittent asthma, uncomplicated Discharge Disposition: Home or Self Care 07/23/2024 Telephone Internal Medicine - [facility] [address] [place] [phone] Zane Brock MD fax from Last 3 [...] 11:00 AM EDT Office Visit Endocrinology - [place] [address] [place] [address] Rashid Mills MD [address] [place] [address] Health Maintenance Due Date Last [...] Signed Date: 09/02/2024 09:58 ET Workstation ID: [id number] Transcribed By: Self Edit Transcribed Date: 09/02/2024 [...] Signed Date: 09/02/2024 09:58 ET Workstation ID: [id number] Transcribed By: Self Edit Transcribed Date: 09/02/2024 [...] AM EDT Narrative 12/30/2023 3:24 PM EDT [facility] Diagnostic Imaging Department [address] [place] [address] [id number] Patient: ??AMTT COE ?/Age/Sex: 1955 - - Unit#: ??[id number] ? Location/Status: ??SPDIMAM/REG CLI ? Mnemonic/Ordering Site: ??DIGSC/SPMAM Ordering Physician: ??ZANE BROCK MD Asmita Screening Digital - 12/30/23 - 1128 Report Status:Signed EXAM: [facility] Screening Digital EXAM DATE AND TIME: 12/30/2023 11:29 AM HISTORY: ??Screening. COMPARISON: ??12/17/22, 11/15/21, 08/10/20, 08/06/19 TECHNIQUE: Bilateral digital breast tomosynthesis was performed in the CC and MLO projections. Computer aided detection with [employer] 3D 3.1 was employed. TISSUE DENSITY: c. [...] Procedure Note Krystal Zhang MD - 04/14/2024 [facility] Diagnostic Imaging Department [address] [place] [address] Patient: MATT COE.O.B./Age/Sex: 1955 - 68 - F Unit#: [id number] Location/Status: SPDIMAM/REG CLI Mnemonic/Ordering Site: [facility] Ordering Physician: ZANE BROCK MD [facility] Screening Digital - 12/30/23 - 1128 Report Status:Signed EXAM: [facility] Screening Digital EXAM DATE AND TIME: 12/30/2023 11:29 AM HISTORY: Screening. COMPARISON: 12/17/22, 11/15/21, 08/10/20, 08/06/19 TECHNIQUE: Bilateral digital breast tomosynthesis was performed in the CCand MLO projections. Computer aided detection with [employer] 3D 3.1was employed. TISSUE DENSITY: c. The [...] spine and hips were performed on a [employer] fan beam bone densitometer. ? Bone mineral [...] spine and hips were performed on a [employer] beam bone densitometer. Bone mineral density measurements [...] Hm Stool Based Tests (FOBT/FIT) (04/02/2023) Pathologist [facility] Colorectal Cancer Screening: Stool Based Tests Negative Abstracted us Historical Provider HEALTH MAINTENANCE Final Result from Last 3 Months or Most Recently Relevant to Health Maintenance Insurance [employer] [place] [id number] Care Teams Corporate Travel Consultant Relationship Specialty Start Date End Date Zane Brock MD [address] [place] [address] [place] [address] PCP - General Internal Medicine 02/04/20
--- OUTSIDE RECORDS SUMMARY | 2024-09-09 14:45 | XMS_ITS | Clinical Summary ---
Author Organization [facility] Address [address] [place] [address] Care Team Providers Care Vp Digital Marketing Name Role Phone Unavailable Primary Care Provider [...]
--- OUTSIDE RECORDS SUMMARY | 2024-09-09 14:45 | XMS_ITS | Encounter Summary ---
Author Organization [facility] Address [address] [place] [address] Care Team Providers Care Cake Batter Mixer Name Role Phone Zane Brock MD Primary Care Provider [phone] [phone] Encounter Details Date Type Department Care Team (Latest Contact Info) Description 09/02/2024 9:34 AM EST - 09/02/2024 11:59 PM [facility] Hospital Encounter Xray - [facility] [address] [facility] [place] [phone] Mild intermittent asthma, uncomplicated Discharge Disposition: Home [...] 11:00 AM EDT Office Visit Endocrinology - [place] [address] [place] [address] Rashid Mills MD [address] [place] [address] documented as of this encounter Procedures Procedure [...] Signed Date: 09/02/2024 09:58 ET Workstation ID: [id number] Transcribed By: Self Edit Transcribed Date: 09/02/2024 [...] Signed Date: 09/02/2024 09:58 ET Workstation ID: [id number] Transcribed By: Self Edit Transcribed Date: 09/02/2024 09:52 ET Eleanor Francois MD IMG XR PROCEDURES Final Resu lt documented in this encounter Visit Diagnoses Diagnosis Mild intermittent asthma, uncomplicated documented in this encounter Care Teams Cake Batter Mixer Relationship Specialty Start Date End Date Zane Brock MD [address] [place] [address] PCP - General Internal Medicine 02/04/20 documented as of this encounter
[2024-09-09 14:57] LABS: Erythrocyte Sedimentation Rate 5 MM/HR (0-20)
[2024-09-10 13:53] LABS: IgA 290 mg/dL (70-320); IgG 917 mg/dL (600-1540); IgM 83 mg/dL (50-300)
[2024-09-10 20:08] LABS: Antibody to SS-A Antigen <1.0 NEG AI (<1.0 NEG); Antibody to SS-B Antigen <1.0 NEG AI (<1.0 NEG); Myeloperoxidase Antibody <1.0 AI; Proteinase 3 PR3 Antibodies <1.0 AI; Scleroderma 70 Antibody <1.0 NEG AI (<1.0 NEG)
[2024-09-14 15:43] LABS: Angiotensin Converting Enzyme 22 U/L (9-67)
[2024-09-15 12:04] LABS: Asperg fumigatus Precip Abs NEGATIVE (NEGATIVE); Micropoly faeni Abs NEGATIVE (NEGATIVE); Pigeon serum Abs NEGATIVE (NEGATIVE); Saccharo pora viridis Abs NEGATIVE (NEGATIVE); Thermo candidus Abs NEGATIVE (NEGATIVE); Thermoa vulgaris #1 NEGATIVE (NEGATIVE)
[2024-09-15 19:58] LABS: Immunoglobulin E 24 kU/L (<OR=114)
== END 2024-09-09 10:30 | disposition home or self-care (01) ==
LOC: HO.LAB 10:29
PROVIDERS: PCP Internal Medicine; Visit Provider Hospitalist
DX: J47.9 Bronchiectasis, uncomplicated (principal); M35.00 Sjogren syndrome, unspecified; H20.9 Unspecified iridocyclitis; R91.8 Other nonspecific abnormal finding of lung field; J45.20 Mild intermittent asthma, uncomplicated
CPT/HCPCS: 36415; 80048; 82164; 82784; 82785; 85025; 85652; 86021; 86235; 86331; 86606; 86609; 99202

== ENCOUNTER 2024-12-16 08:56 | Outpatient (AMB) | payer MEDICARE, SELFPAY ==
--- OUTSIDE RECORDS SUMMARY | 2024-12-16 09:28 | XMS_ITS | Clinical Summary ---
Author Organization [facility] Address [address] [place] [address] Phone Care Team Providers Care Recovery Coordinator Name Role Phone Zane Hardin MD Primary Care Provider [phone] Allergies Active Allergy Reactions Criticality Noted Date Comments Aspirin Hives 05/07/2024 Nsaids (Non-Steroidal Anti-Inflammatory Drug) 05/07/2024 Paroxetine Other,Nausea And Vomiting 01/16/2021 Medications zoledronic acid (RECLAST) 5 mg/100 mL [...] eye(s) every 12 hours. 03/20/20 24 Active azelastine (ASTELIN) 137 mcg (0.1 %) nasal spray Administer 1 spray into each nostril 2 (two) times a day. 10/09/19 25 Active TURMERIC ORAL Take by mouth. Active valACYclovir (VALTREX) 500 mg tablet TAKE 1 TABLET BY MOUTH EVERY DAY 90 tablet 1 11/25/19 25 Active valACYclovir (VALTREX) 500 mg tablet TAKE 1 TABLET BY MOUTH EVERY DAY 90 tablet 08/05/19 25 025 Discontinued Active Problems Problem Noted [...] Encounters Date Type Department Care Team Description 10/11/2024 2:51 PM EDT - 10/11/2024 11:59 PM EDT Hospital Encounter Ultrasound - [facility] [address] [place] [phone] Right leg pain Discharge Disposition: Home or Self Care 10/11/2024 Telephone [facility] [place] [phone] Zane Hardin MD NEEDS INFO FAXED 10/11/2024 [facility] [address] [place], [place] [address] [phone] Zane Hardin MD RESULTS 10/08/2024 4:28 PM EDT - 10/08/2024 11:59 PM EDT [facility] [place] [phone] Right leg pain Discharge Disposition: Home or Self Care 10/08/2024 4:28 PM EDT - 10/08/2024 11:59 PM EDT Hospital En[facility] [place] [phone] Right leg pain Discharge Disposition: Home or Self Care 10/08/2024 4:00 PM EDT [facility] [address] [place], [place] [address] [phone] Tripp Kwan MD Right leg pain (Primary Dx) 10/08/2024 [facility]phone [facility] [address] [place], [place] [address] [phone] Zane Hardin MD Leg Pain 10/04/2024 Lab Requisition [facility] - Main Lab [address] [facility] [place] [address] Magaly Rasmussen MD Acute vaginitis from Last 3 Months Immunizations Name Administration [...] Date Smoking Tobacco: Never Smokeless Tobacco: Never Tobacco Cessation:Counseling Given: Not Answered Alcohol Use Standard Drinks/Week Comments No 0 (1 standard drink = 0.6 oz pur e alcohol) Comments No Sex and Gender Information Value Date Recorded Sex Assigned at Not on file Legal Sex Female 5:58 AM EST Gender Identity Not on file Sexual Orientation Not on file Obstetrics History Last Filed Vital Signs Vital Sign Reading Time Taken Comments Blood Pressure 136/56 10/08/2024 4:05 PM EDT Pulse 74 10/08/2024 4:05 PM EDT Temperature 37.2 C (99 F) 05/07/2024 1:11 PM EST Respiratory Rate - - Oxygen Saturation 100% 05/07/2024 1:11 PM EST Inhaled Oxygen Concentration - - Weight 48.5 kg (106 lb 14.4 oz) 10/08/2024 4:05 PM EDT Height 152.4 cm (5') 10/08/2024 4:05 PM EDT Body Mass Index 20.88 10/08/2024 4:05 PM EDT Plan of Treatment Upcoming Encounters Date Type Department Care Team (Late st Contact Info) Description 02/04/2025 11:00 AM EDT Office Visit Endocrinology - [place] [address] [place] [phone] Rashid Mills MD [address] [place] [address] Health Maintenance Due Date Last Done Comments Zoster Vaccines (1 of 2) 2005 RSV Immunization Adult Patients (1 - Risk 60-74 years 1-dose series) 2015 Depression Screening 06/08/2022 Hepatitis C Screening 06/08/2022 Medicare Annual Wellness Visit 06/08/2022 Social Influencers of Health Screening 06/08/2022 COVID-19 Vaccine ( season) 2024 05/20/2021, 10/21/2020, 09/23/2020 Colorectal Cancer Screening: Stool Based Tests (FOBT/FIT) 04/02/2024 04/02/2023 Influenza Vaccine (Season Ended) 2025 Falls Risk Assessment 05/07/2025 05/07/2024 Breast Cancer [...] age to complete this topic Meningococcal B Vaccine Aged Out No l onger eligible based on patient's age to complete this topic RSV Immunization Patients Under 20 months Aged Out No longer eligible based on patient's age to complete this topic Varicella Vaccines Aged Out No longer eligible based on patient's age to complete this topic Procedures Procedure Name Priority Date/Time Associated Diagnosis Comments VAS US DUPLEX LOWER EXT VENOUS RIGHT STAT 10/11/2024 3:19 PM EDT Right leg pain XR TIBIA FIBULA 2 VIEWS RIGHT Routine 10/08/2024 4:44 PM EDT Right leg pain XR FEMUR 2+ VIEWS RIGHT Routine 10/08/2024 4:44 PM EDT Right leg pain VAGINITIS PATHOGENS BY PCR Routine 10/04/2024 12:00 AM EDT Acute vaginitis HM DIABETES EYE EXAM 10/01/2024 EXTERNAL CLINICAL LAB 09/16/2024 EXTERNAL CLINICAL LAB 09/15/2024 LIPID PANEL Routine 03/30/2024 ALTA SCREENING DIGITAL Routine 12/30/2023 3:24 PM EDT Encounter for screening mammogram for malignant neoplasm of breast DXA BONE DENSITY STUDY 1+ SITS AXIAL SKEL Routine 09/11/2023 1:27 PM EDT Age-related osteoporosis without current pathological fracture STOOL BASED TEST Routine 04/02/2023 from Last 3 Months or Most Recently Relevant to Health Maintenance Results * Vascular US duplex lower extremity venous right (10/11/2024 3:19 PM EDT) Anatomical Region Laterality Modality Vascular, Abdomen Ultrasound 10/11/2024 3:46 PM EDT Impressions 10/11/2024 3:47 PM EDT No evidence of deep venous thrombosis from the common femoral vein to the popliteal vein in the right lower extremity. -------- FINAL REPORT -------- Dictated By: Lilliam Abdalla Dictated Date: 10/11/2024 15:46 ET Assigned Physician: Lilliam Abdalla Reviewed and Electronically Signed By: Lilliam Abdalla Signed Date: 10/11/2024 15:47 ET Workstation ID: [id number] Transcribed By: Self Edit Transcribed Date: 10/11/2024 15:46 ET Narrative 10/11/2024 3:47 PM EDT EXAM: VAS US DUPLEX LOWER EXT VENOUS RIGHT HISTORY: r/o dvt COMPARISON: None Ultrasonic examination of the deep venous system of the right leg was performed from the common femoral vein into the upper calf and includes the posterior tibial vein at the ankle, and demonstrates preserved flow, compressibility, and augmentation throughout the visualized deep venous system. Procedure Note Lilliam Abdalla MD - 10/11/2024 EXAM: VAS US DUPLEX LOWER EXT VENOUS RIGHT HISTORY: r/o dvt COMPARISON: None Ultrasonic examination of the deep venous system of the right leg wasperformed from the common femoral vein into the upper calf and includesthe posterior tibial vein at the ankle, and demonstrates preserved flow,compressibility, and augmentation throughout the visualized deep venoussystem. IMPRESSION: No evidence of deep venous thrombosis from the common femoral vein to thepopliteal vein in the right lower extremity. -------- FINAL REPORT -------- Dictated By: Lilliam Abdalla Dictated Date: 10/11/2024 15:46 ET Assigned Physician: Lilliam Abdalla Reviewed and Electronically Signed By: Lilliam Abdalla Signed Date: 10/11/2024 15:47 ET Workstation ID: [id number] Transcribed By: Self Edit Transcribed Date: 10/11/2024 15:46 ET us Tripp Kwan MD CV VASCULAR PROCEDURES Final R esult * XR Tibia Fibula 2 Views Right (10/08/2024 4:44 PM EDT) Anatomical Region Laterality Modality Lower Extremities, Lower Leg Right Rad iographic Imaging 10/08/2024 6:54 PM EDT Impressions 10/08/2024 6:56 PM EDT Right femur: No bony abnormality. Right tibia/fibula: No bony abnormality. -------- FINAL REPORT -------- Dictated By: Lilliam Abdalla Dictated Date: 10/08/2024 18:54 ET Assigned Physician: Lilliam Abdalla Reviewed and Electronically Signed By: Lilliam Abdalla Signed Date: 10/08/2024 18:56 ET Workstation ID: [id number] Transcribed By: Self Edit Transcribed Date: 10/08/2024 18:54 ET Narrative 10/08/2024 6:56 PM EDT XR TIBIA FIBULA 2 VIEWS RIGHT, XR FEMUR 2+ VIEWS RIGHT Reason: ? thomas splint. Pain Comparison: None FINDINGS: Right femur: No fracture or abnormal periosteal reaction. She pain knee joints are congruent. No abnormal calcification or lucency in the soft tissues. Right tibia/fibula: No fracture or abnormal periosteal reaction. Knee and ankle joints are intact. No abnormal calcifications or lucency seen in the soft tissues. Procedure Note Lilliam Abdalla MD - 10/08/2024 XR TIBIA FIBULA 2 VIEWS RIGHT, XR FEMUR 2+ VIEWS RIGHT Reason: ? thomas splint. Pain Comparison: None FINDINGS: Right femur: No fracture or abnormal periosteal reaction. She pain kneejoints are congruent. No abnormal calcification or lucency in the softtissues. Right tibia/fibula: No fracture or abnormal periosteal reaction. Knee andankle joints are intact. No abnormal calcifications or lucency seen inthe soft tissues. IMPRESSION: Right femur: No bony abnormality. Right tibia/fibula: No bony abnormality. -------- FINAL REPORT -------- Dictated By: Lilliam Abdalla Dictated Date: 10/08/2024 18:54 ET Assigned Physician: Lilliam Abdalla Reviewed and Electronically Signed By: Lilliam Abdalla Signed Date: 10/08/2024 18:56 ET Workstation ID: [id number] Transcribed By: Self Edit Transcribed Date: 10/08/2024 18:54 ET Tripp Kwan MD IMG XR PROCEDURES Final Result * XR Femur 2+ Views Right (10/08/2024 4:44 PM EDT) Anatomical Region Laterality Modality Lower Extremities, Femur Right Radiogr aphic Imaging 10/08/2024 6:54 PM EDT Impressions 10/08/2024 6:56 PM EDT Right femur: No bony abnormality. Right tibia/fibula: No bony abnormality. -------- FINAL REPORT -------- Dictated By: Lilliam Abdalla Dictated Date: 10/08/2024 18:54 ET Assigned Physician: Lilliam Abdalla Reviewed and Electronically Signed By: Lilliam Abdalla Signed Date: 10/08/2024 18:56 ET Workstation ID: [id number] Transcribed By: Self Edit Transcribed Date: 10/08/2024 18:54 ET Narrative 10/08/2024 6:56 PM EDT XR TIBIA FIBULA 2 VIEWS RIGHT, XR FEMUR 2+ VIEWS RIGHT Reason: ? thomas splint. Pain Comparison: None FINDINGS: Right femur: No fracture or abnormal periosteal reaction. She pain knee joints are congruent. No abnormal calcification or lucency in the soft tissues. Right tibia/fibula: No fracture or abnormal periosteal reaction. Knee and ankle joints are intact. No abnormal calcifications or lucency seen in the soft tissues. Procedure Note Lilliam Abdalla MD - 10/08/2024 XR TIBIA FIBULA 2 VIEWS RIGHT, XR FEMUR 2+ VIEWS RIGHT Reason: ? thomas splint. Pain Comparison: None FINDINGS: Right femur: No fracture or abnormal periosteal reaction. She pain kneejoints are congruent. No abnormal calcification or lucency in the softtissues. Right tibia/fibula: No fracture or abnormal periosteal reaction. Knee andankle joints are intact. No abnormal calcifications or lucency seen inthe soft tissues. IMPRESSION: Right femur: No bony abnormality. Right tibia/fibula: No bony abnormality. -------- FINAL REPORT -------- Dictated By: Lilliam Abdalla Dictated Date: 10/08/2024 18:54 ET Assigned Physician: Lilliam Abdalla Reviewed and Electronically Signed By: Lilliam Abdalla Signed Date: 10/08/2024 18:56 ET Workstation ID: [id number] Transcribed By: Self Edit Transcribed Date: 10/08/2024 18:54 ET us Tripp Kwan MD IMG XR PROCEDURES Final Result * Vaginitis pathogens molecular study (10/04/2024 12:00 AM EDT) Trichomonas vaginalis Negative Negative 10/05/2024 9:11 AM EDT [facility] Gardnerella vaginalis Negative Negative 10/05/2024 9:11 AM EDT [facility] Grazyna Species Negative Negative 9:11 AM EDT [facility] Swab Vaginal structure / Unknown 10/04/2024 10/04/2024 1:01 PM EDT us Magaly Rasmussen MD LAB MICROBIOLOGY - GENER AL ORDERABLES Final Result [facility] HOSPITAL LAB [address] [place] [address], * Diabetes Eye Exam (10/01/2024) [facility] HEALTH MAINTENANCE Final Result * External clinical lab (09/16/2024) Only the most recent of2 resultswithin the time period is included. [facility] LAB BLOOD ORDERABLES Fin al Result * Lipid panel (03/30/2024) LDL/HDL Ratio 3 0 - 4 Triglycerides 79 0 - 150 mg/dL Cholesterol 189 0 - 200 mg/dL HDL 77 >=40 mg/dL LDL Cholesterol 97 0 - 100 mg/dL Blood Venous blood specimen / Unknown [facility] Provider LAB BLOOD ORDERABLES Katelyn l Result * ALTA SCREENING DIGITAL (12/30/2023 3:24 PM EDT) Anatomical Region Laterality Modality Mammography 12/30/2023 11:0 2 AM EDT Narrative 12/30/2023 3:[address] [facility] Diagnostic Imaging Department [address] [place] [address] Patient: MATT HARDWICK /Age/Sex: 1955 - 68 - F Unit#: [id number] Location/Status: SPDIMAM/REG CLI Mnemonic/Ordering Site: [facility] Ordering Physician: ZANE HARDIN MD [facility] Screening Digital - 12/30/23 - 1128 Report Status:Signed EXAM: [facility] Screening Digital EXAM DATE AND TIME: 12/30/2023 11:29 AM HISTORY: Screening. COMPARISON: 12/17/22, 11/15/21, 08/10/20, 08/06/19 TECHNIQUE: Bilateral digital breast tomosynthesis was performed in the CC and MLO projections. Computer aided detection with [employer] 3D 3.1 was employed. TISSUE DENSITY: c. The breasts are heterogeneously dense, which may obscure small masses. FINDINGS: No suspicious masses, grouped microcalcifications, or areas of architectural distortion are seen. There are scattered microcalcifications. Numerous skin calcifications are also seen. The vascularity is unremarkable. IMPRESSION: Stable mammographic appearance of the breasts. No evidence of malignancy is seen. A negative mammogram in the presence of a clinically suspicious palpable abnormality does not preclude the possibility of malignancy or alter the indications for biopsy. BI-RADS: Category 2: Benign RECOMMENDATION(S): 1: Routine screening mammogram BILATERAL in 1 year. Dictating Physician: KRYSTAL ZHANG MD Electronically Signed by: KRYSTAL ZHANG MD Dic Date/Time: 12/30/23 152 Sign date/Time: 12/30/23 152 Procedure Note Krystal Zhang MD - 04/14/2024 [facility] Diagnostic Imaging Department [address] [place] [address] Patient: MATT HARDWICK/Age/Sex: 1955 - 68 - F Unit#: [id number] Location/Status: [facility] CLI Mnemonic/Ordering Site: [facility] Ordering Physician: ZANE HARDIN MD [facility] Screening Digital - 12/30/23 - 1128 Report Status:Signed EXAM: [facility] Screening Digital EXAM DATE AND TIME: 12/30/2023 11:29 AM HISTORY: Screening. COMPARISON: 12/17/22, 11/15/21, 08/10/20, 08/06/19 TECHNIQUE: Bilateral digital breast tomosynthesis was performed in the CCand MLO projections. Computer aided detection with [employer] 3D 3.1was employed. TISSUE DENSITY: c. The [...] Date/Time: 12/30/23 1524 Sign date/Time: 12/30/23 1524 us Zane Hardin MD IMG BI PROCEDURES Final R esult * DXA BONE DENSITY STUDY 1+ SITS AXIAL SKEL (09/11/2023 1:27 PM EDT) Anatomical Region Laterality Modality Bone Densitometr y 03/04/2023 11:5 8 AM EDT Narrative 09/11/2023 6:50 PM EDT Clinical history: osteoporosis Scans of the lumbar spine and hips were performed on a [employer] fan beam bone densitometer. Bone mineral density measurements [...] >20% for major osteoporotic fracture PLEASE NOTE: W.H.O. classification is based on lowest measured density at the spine, femoral neck, or total hip.This classification has prognostic significance when applied to post menopausal women and older men. 1) The World Health Organization defines low BMD as follows: T-score Normal at or > -1 Osteopenia < -1 and > -2.5 Osteoporosis at or < -2.5 without fractures Established osteoporosis < -2.5 with fractures Procedure Note Naseem Sun MD - 02/16/2024 Clinical history: osteoporosis Scans of the lumbar spine and hips were performed on a [employer] beam bone densitometer. Bone mineral density measurements [...] osteoporosis < -2.5 with fractures Heike Doyle SOCIETY REPORTER IMG DXA PROCEDURES Final Resul t * Stool Based Tests (FOBT/FIT) (04/02/2023) [facility] Colorectal Cancer Screening: Stool Based Tests Negative Abstracted Historical Provider HEALTH MAINTENANCE Final Result from Last 3 Months or Most Recently Relevant to Health Maintenance Insurance [employer] [place] [id number] Care Teams Recovery Coordinator Relationship Specialty Start Date End Date Zane Hardin MD [address] [place], [place] [address] [address] PCP - General Internal Medicine 02/04/20
[2024-12-16 10:14] VITALS: BP 108/52; PULSE 78; O2SAT 100; BMI 20.2
--- NOTE | 2024-12-16 10:14 | MHC.OFFVIS ---
Vital Signs 12/16/24 10:14 Height 5 ft 1 in Weight 106 lb 14.787 oz BMI 20.2 BP 108/52 L Blood Pressure Location Lt brachial Position Sitting Pulse 78 Pulse Source Pulse Oximeter Pulse Oximetry (%) 100 Oxygen Delivery Method Room Air Intake Visit Reasons: COPD Supervisor Blast Furnace Required: No Accompanied by: Self / Same As Patient Allergies amoxicillin Allergy (Intermediate, Verified 12/16/24 10:16) Blister aspirin Allergy (Verified 12/16/24 10:16) KAYLEIGH HPI Comments Details: The patient is a 69 year woman with a history of asthma, nasal polyposis and uveitis presenting with worsening for ongoing symptoms. Apparently the patient was initially diagnosed with uveitis and she was seen by specialists. 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 She was evaluated at [facility]. Ultimately placed on methotrexate for the suspicion of an autoimmune inflammatory etiology. Although sarcoidosis was never clearly identified. She does continue on her subcutaneous methotrexate on a weekly basis. Seems to be tolerating the medicine well. In the meantime she has had couple CT scans which I personally reviewed. She did bring the images from [place]. She does have some evidence of chronic bronchitis and interstitial changes primarily at the bases in the periphery but not significant to call interstitial lung disease. No evidence of any ground-glass opacities that I can appreciate on this CT scan. Although she has had ground-glass opacities described in the past. She also had a chest x-ray more recently in August demonstrating some interstitial changes but compared to the CT scans and therefore is hard to know there is any progression of disease. The patient has had PFTs back about 4 5 years ago I do not have those results. She does use her rescue inhaler as needed. She was using Flonase for her nose but she started having some epistaxis so she stopped it. Therefore, will have her undergo pulmonary function studies and blood work and have her come back. Will go ahead and add some regimen therapies to her nasal congestion and postnasal drip. Have her come back and then we can talk about additional testing such as a CT scan depending on the PFTs. 12/16/2024 the patient is here for pulmonary follow-up visit. Overall the patient is doing better. Her cough is significantly improved. She does feel like the Astelin nasal spray addition has been effective. She has been able to cut it down to once a day. In the meantime she did have blood work which we personally reviewed. All the blood work was reassuring suggesting a strong immune system even then on the methotrexate. The patient also had her connective tissue disease workup. All was negative. She does continue on methotrexate per her arthritis specialists. In the meantime she also had a chest x-ray done at [facility] which was without any acute disease. She also had pulmonary function studies that were suboptimal but will. He reasonable and stable based on her previous once. She does have a rescue inhaler that she does not have to use. She will continue with the nasal therapy and allergy therapy. She will also follow up with her financial adviser. The patient had a question reaction to amoxicillin. She can always consider having a challenge to see if she is really allergic or not. Otherwise the patient follow-up in 6 months if she has any issues prior to this she will call for an earlier assessment. [facility] Medical History (Updated 09/09/24 @ 21:23 by Jonh Panda MD) Chronic cough Pulmonary fibrosis Chronic rhinitis Asthma Uveitis Sicca syndrome Bronchiectasis Social History Patient Tobacco Use Status: Never used Tobacco Review of Systems Const Denies fever(s) Eyes Reports loss of vision ENT Reports nasal congestion, Reports nasal discharge and Reports post nasal drip Card Denies chest pain and Denies dyspnea on exertion Resp Denies dyspnea on exertion and Denies wheezing GI Denies abdominal pain Musc Reports no additional complaints Skin/Breast Denies rash Neuro Reports loss of vision Aller/Immun Denies wheezing Physical Exam Vital Signs: Last Vital Signs Pulse 78 12/16/24 10:14 BP 108/52 L 12/16/24 10:14 Pulse Ox 100 12/16/24 10:14 Oxygen Delivery Method Room Air 12/16/24 10:14 BMI result Body Mass Index 20.2 Const General: comfortable HEENT General nose exam: Abnormal mucous membranes and turbinates present boggy and erythematous and Nasal discharge present Neck Neck: Yes supple Chest Chest palpation & inspection: normal inspection of the chest Resp Effort & Inspection: normal respiratory effort Auscultation: clear to auscultation bilaterally Cardio Heart sounds: S1 normal heart sound present and S2 normal heart sound present GI Palpation (GI): Soft to palpation Skin General skin exam: no rashes or lesions noted Extrem General: Yes no clubbing, cyanosis or edema Assessment & Plan Assessment & Plan (1) Uveitis: Code(s): H20.9 - Unspecified iridocyclitis Category: Medical (2) Asthma: Code(s): J45.909 - Unspecified asthma, uncomplicated Category: Medical Qualifiers: Asthma complication type: uncomplicated Asthma persistence: intermittent Asthma severity: mild Qualified Code(s): J45.20 - Mild intermittent asthma, uncomplicated (3) Chronic rhinitis: Code(s): J31.0 - Chronic rhinitis Category: Medical (4) Pulmonary fibrosis: Code(s): J84.10 - Pulmonary fibrosis, unspecified Category: Medical (5) Chronic cough: Code(s): R05.3 - Chronic cough Category: Medical Plan continue astelin nasal spray saline gel holding fluticasone due to epistaxis JOSEE as needed consider PCN challenge with Alergy consider repeating CT chest, we will discuss during her F/U visit F/U 6 months Coding Level of Care Code Est Pt Level 4 (76913) Diagnoses Uveitis H20.9 Mild intermittent asthma without complication J45.20 Asthma complication type: uncomplicated Asthma persistence: intermittent Asthma severity: mild Chronic rhinitis J31.0 Pulmonary fibrosis J84.10 Chronic cough R05.3 Time Spent (min) 17
== END 2024-12-16 10:36 | disposition home or self-care (01) ==
LOC: HO.HPS 08:56
PROVIDERS: PCP Internal Medicine; Visit Provider Hospitalist
DX: H20.9 Unspecified iridocyclitis (principal); J45.20 Mild intermittent asthma, uncomplicated; J31.0 Chronic rhinitis; J84.10 Pulmonary fibrosis, unspecified; R05.3 Chronic cough
CPT/HCPCS: 94060; 94727; 94729; 99213

== ENCOUNTER 2024-12-16 09:39 | Outpatient (REF) | payer MEDICARE, SELFPAY ==
--- NOTE | 2024-12-16 10:10 | PFT_ITS ---
Indication: Asthma Spirometry FEV1 to FVC 82%; FEV1 1.87 L; FVC 2.27 L. No significant response to bronchodilators noted. Lung Volumes Total lung capacity 108% predicted; residual volume 231% predicted Diffusion Capacity DLCO 82% predicted Comparisons None Interpretation No obstructive nor restrictive ventilatory defects identified. No significant response to bronchodilators noted. The patient does have significant air trapping which could be secondary to small airways disease and her diagnosis of asthma. Diffusing capacity is within normal limits. Clinical correlation warranted. MTDD
[2024-12-16 10:13] VITALS: PULSE 75; O2SAT 99
== END 2024-12-16 09:40 | disposition home or self-care (01) ==
LOC: HO.RESP 09:39
PROVIDERS: PCP Internal Medicine; Visit Provider Hospitalist
DX: R05.3 Chronic cough (principal); J45.20 Mild intermittent asthma, uncomplicated; J31.0 Chronic rhinitis; J84.10 Pulmonary fibrosis, unspecified
CPT/HCPCS: 94010; 94640; 94727; 94729; 99212

== ENCOUNTER 2024-12-16 10:46 | Outpatient (REF) | payer SELFPAY | END 2024-12-16 10:47 | disposition home or self-care (01) | LOC: HO.HAP 10:46 | PROVIDERS: Visit Provider Internal Medicine | DX: Z13.89 Encounter for screening for other disorder (principal) ==